=== PATIENT | male | born 1995 | race Caucasian/White ===

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

== ENCOUNTER 2017-05-17 16:56 | Emergency (ER) | payer OTHER ==
[2017-05-17 17:44] VITALS: RESP 16
[2017-05-17] MEDS ORDERED: NS 1,000 ML IV ONE (17:58)
--- NOTE | 2017-05-17 17:59 | EDPHY ---
H & P Stated Complaint: abd pain x 6d, N/V/D Time Seen by Provider: 05/17/17 17:58 HPI/ROS: CHIEF COMPLAINT: Abdominal pain, vomiting, diarrhea HISTORY OF PRESENT ILLNESS: The patient presents to the ED with several day history of worsening abdominal pain, vomiting and diarrhea. The patient denies prior history of abdominal disease. The patient has no prior surgical history. The patient denies recent travel outside the [place] or antibiotic use. The patient reports his pain is generalized in nature. The patient denies dysuria. He denies flank pain. He denies additional acute complaints. REVIEW OF SYSTEMS: A comprehensive 10 point review of systems is otherwise negative aside from elements mentioned in the history of present illness. Source: Patient Exam Limitations: No limitations - Personal History Current Tetanus/Diphtheria Vaccine: Yes Current Tetanus Diphtheria and Acellular Pertussis (TDAP): Yes Tetanus Vaccine Date: < 10 YEARS - Medical/Surgical History Hx Asthma: No Hx Chronic Respiratory Disease: No Hx Diabetes: No Hx Cardiac Disease: No Hx Renal Disease: No Hx Cirrhosis: No Hx Alcoholism: No Hx HIV/AIDS: No Hx Splenectomy or Spleen Trauma: No Other PMH: DENIES - Social History Smoking Status: Never smoked - Physical Exam Exam: General Appearance: Alert, no distress Eyes: Pupils equal and round no pallor or injection ENT, Mouth: Mucous membranes moist Respiratory: There are no retractions, lungs are clear to auscultation Cardiovascular: Regular rate and rhythm Gastrointestinal: Mild generalized tenderness to palpation Neurological: A&O, normal motor function, normal sensory exam, normal cranial nerves Skin: Warm and dry, no rashes Musculoskeletal: Neck is supple nontender Extremities: symmetrical, full range of motion Constitutional: Initial Vital Signs Temperature (C) 36.8 C 05/17/17 17:42 Heart Rate 54 L 05/17/17 17:42 Respiratory Rate 16 05/17/17 17:42 Blood Pressure 134/75 H 05/17/17 17:42 O2 Sat (%) 98 05/17/17 17:42 O2 Delivery Mode Room Air Allergies/Adverse Reactions: No Known Allergies Allergy (Unverified 05/17/17 17:42) Home Medications: Medication Instructions Recorded Lamictal 11/23/16 Medical Decision Making ED Course/Re-evaluation: The patient presents the emergency department with complaints of abdominal pain , vomiting and diarrhea for the past several days. The patient was noted to have mild generalized tenderness on exam without sosa peritoneal signs or right lower quadrant tenderness. The patient had an IV established. He received 2 L of normal saline, IV Toradol, IV morphine and 4 mg of Zofran. The patient's laboratory studies are within normal limits. I re-evaluated the patient several times in the ED. I re-evaluated him at 7:50 p.m. And he is in no acute distress and his symptoms have improved. His abdominal examination has improved as well. At this point time I favor gastroenteritis as a likely presentation of his symptoms today. The patient will be advised to return to the ED for any worsening abdominal pain or other concerns. Patient will be given a prescription for Zofran. He is given customary aftercare instructions and return precautions. Differential Diagnosis: Differential diagnosis considered includes appendicitis, cholecystitis, gastroenteritis, perforation, obstruction, pancreatitis - Data Points Laboratory Results: Laboratory Results 05/17/17 18:13 05/17/17 18:13 05/17/17 05/17/17 18:13 18:13 WBC 7.99 10^3/uL 10^3/uL (3.80-9.50) RBC 4.91 10^6/uL 10^6/uL (4.40-6.38) Hgb 16.1 g/dL g/dL (13.7-17.5) Hct 45.6 % % (40.0-51.0) MCV 92.9 fL fL (81.5-99.8) MCH 32.8 pg pg (27.9-34.1) MCHC 35.3 g/dL g/dL (32.4-36.7) RDW 12.1 % % (11.5-15.2) Plt Count 264 10^3/uL 10^3/uL (150-400) MPV 10.2 fL fL (8.7-11.7) Neut % (Auto) 79.8 % H % (39.3-74.2) Lymph % (Auto) 10.6 % L % (15.0-45.0) Wilson % (Auto) 8.3 % % (4.5-13.0) Eos % (Auto) 0.9 % % (0.6-7.6) Baso % (Auto) 0.1 % L % (0.3-1.7) Nucleat RBC Rel Count 0.0 % % (0.0-0.2) Absolute Neuts (auto) 6.38 10^3/uL 10^3/uL (1.70-6.50) Absolute Lymphs (auto) 0.85 10^3/uL L 10^3/uL (1.00-3.00) Absolute Monos (auto) 0.66 10^3/uL 10^3/uL (0.30-0.80) Absolute Eos (auto) 0.07 10^3/uL 10^3/uL (0.03-0.40) Absolute Basos (auto) 0.01 10^3/uL L 10^3/uL (0.02-0.10) Absolute Nucleated RBC 0.00 10^3/uL 10^3/uL (0-0.01) Immature Gran % 0.3 % % (0.0-1.1) Immature Gran # 0.02 10^3/uL 10^3/uL (0.00-0.10) Sodium 144 mEq/L mEq/L (135-145) Potassium 3.7 mEq/L mEq/L (3.5-5.2) Chloride 108 mEq/L mEq/L (97-110) Carbon Dioxide 25 mEq/l mEq/l (22-31) Anion Gap 11 mEq/L mEq/L (8-16) BUN 6 mg/dL L mg/dL (7-23) Creatinine 1.0 mg/dL mg/dL (0.7-1.3) Estimated GFR > 60 Glucose 107 mg/dL H mg/dL (70-100) Calcium 9.3 mg/dL mg/dL (8.5-10.4) Lipase 46 IU/L IU/L (23-300) Medications Given: Discontinued Medications Sodium Chloride (Ns) 1,000 mls @ 0 mls/hr IV EDNOW ONE; Wide Open PRN Reason: Protocol Stop: 05/17/17 17:59 Last Admin: 05/17/17 18:19 Dose: 1,000 mls Ketorolac Tromethamine (Toradol) 30 mg IVP EDNOW ONE Stop: 05/17/17 19:05 Last Admin: 05/17/17 19:26 Dose: 30 mg Morphine Sulfate (Morphine) 6 mg IVP EDNOW ONE Stop: 05/17/17 18:13 Last Admin: 05/17/17 18:22 Dose: 6 mg Ondansetron HCl (Zofran) 4 mg IVP EDNOW ONE Stop: 05/17/17 18:13 Last Admin: 05/17/17 18:20 Dose: 4 mg Departure - Departure Disposition: Home, Routine, Self-Care Clinical Impression: Gastroenteritis Abdominal pain Qualifiers: Abdominal location: generalized Qualified Code(s): R10.84 - Generalized abdominal pain Condition: Good Instructions: Abdominal Pain (ED) Additional Instructions: Sometimes we are unable to diagnose an obvious cause of abdominal pain in the Emergency Department. Based upon our evaluation today, I believe your symptoms are most likely secondary to a viral intestinal infection. Because more serious conditions can be difficult to diagnose early in the course of their presentation, we ask that you return to the Emergency Department in 8-12 hours for a recheck if you are still having pain. This is necessary to exclude the development of a more serious condition such as appendicitis or other intra- abdominal emergency. In the event your pain markedly increases before that time or you develop intractable vomiting or fever return to the Emergency Department immediately. Take Ibuprofen or Motrin 600 mg by mouth three times a day. Zofran as needed for nausea
[2017-05-17] MEDS ORDERED: ONDANSETRON 4 MG/2 ML VIAL IVP ONE (18:12)
[2017-05-17 18:24] LABS: PLATELET COUNT 264 10^3/uL (150-400)
[2017-05-17] MEDS ORDERED: KETOROLAC 30 MG/1 ML SDV IVP ONE (19:04)
[2017-05-17] MEDS ORDERED: ONDANSETRON 4MG PREPACK#2 BTL TAKEHOME ONE (19:52)
[2017-05-17 20:07] VITALS: BP 103/55; PULSE 59; TEMP 96.8; O2SAT 97
== END 2017-05-17 20:06 | disposition home or self-care (01) ==
DX: K52.9 Noninfective gastroenteritis and colitis, unspecified (principal); E86.9 Volume depletion, unspecified
CPT/HCPCS: 96374; J1885; J2270; J2405

== ENCOUNTER 2018-06-01 03:41 | Emergency (ER) | payer OTHER ==
--- NOTE | 2018-06-01 03:45 | EDPHY ---
H & P Time Seen by Provider: 06/01/18 03:45 HPI/ROS: HPI CHIEF COMPLAINT: Cocaine abuse, alcohol use this evening, anxiety attack HISTORY OF PRESENT ILLNESS: This patient is a 23-year-old male, he has a history of bipolar disorder and takes Lamictal, states he was doing cocaine tonight as well as drinking shots of alcohol, he began to feel very anxious and having anxiety attack. Numbness and tingling throughout his body. Hyperventilating. He has his friends to drive him to the hospital for this. However started hyperventilating worse during the drive pulled over and 911 was called. He arrives to the emergency room rather Calm. But is noted to be tachycardic in the 120s. He denies any chest pain or shortness of breath. He states his anxiety has improved since arriving to the emergency room. Past Medical History: History of anxiety Past Surgical History: Denies significant surgical history Social History: Cocaine use, alcohol use. Family History: Noncontributory ROS REVIEW OF SYSTEMS: 10 Systems were reviewed and negative with the exception of the elements mentioned in the history of present illness. Exam Constitutional anxious, nontoxic triage nursing summary reviewed, vital signs reviewed, awake/alert. Vital signs 120s. Eyes normal conjunctivae and sclera, EOMI, PERRLA. HENT normal inspection, atraumatic, moist mucus membranes, no epistaxis, neck supple/ no meningismus, no raccoon eyes. Respiratory clear to auscultation bilaterally, normal breath sounds, no respiratory distress, no wheezing. Cardiovascular tachycardia, regular rhythm, no murmur, no edema, distal pulses normal. Gastrointestinal soft, non-tender, no rebound, no guarding, normal bowel sounds, no distension, no pulsatile mass. Genitourinary no CVA tenderness. Musculoskeletal no midline vertebral tenderness, full range of motion, no calf swelling, no tenderness of extremities, no meningismus, good pulses, neurovascularly intact. Skin pink, warm, & dry, no rash, skin atraumatic. Neurologic awake, alert and oriented x 3, AAOx3, moves all 4 extremities equally, motor intact, sensory intact, CN II-XII intact, normal cerebellar, normal vision, normal speech. Psychiatric normal mood/affect. Heme/Lymph/Immune no lymphadenopathy. Differential Diagnosis: Includes but is not limited to and in no particular order: Anxiety attack, panic attack, cocaine abuse, drug intoxication alcohol intoxication Medical Decision Making: Plan for this patient IV establishment IV fluid bolus , he has declined any anxiety medicine, will keep on monitoring coordinator due to his tachycardia, check basic blood work. Drug screen alcohol. And continue observed. Re-evaluation: 0604: Drug screen positive cocaine and marijuana. Patient re-evaluated at 6:04 a.m. Heart rate 98. Pulse ox 97% on room air. Blood pressure 140/95. Patient re-evaluate: Resting comfortably no acute distress. Is eager for discharge requesting discharge home. Denies any chest pain or shortness of breath. Source: Patient - Personal History Tetanus Vaccine Date: < 10 YEARS - Medical/Surgical History Hx Asthma: No Hx Chronic Respiratory Disease: No Hx Diabetes: No Hx Cardiac Disease: No Hx Renal Disease: No Hx Cirrhosis: No Hx Alcoholism: No Hx HIV/AIDS: No Hx Splenectomy or Spleen Trauma: No Other PMH: DENIES - Social History Smoking Status: Never smoked Constitutional: Initial Vital Signs Temperature (C) 36.7 C 06/01/18 03:45 Heart Rate 122 H 06/01/18 03:45 Respiratory Rate 18 06/01/18 03:45 Blood Pressure 107/88 H 06/01/18 03:45 O2 Sat (%) 100 06/01/18 03:45 O2 Delivery Mode Room Air Allergies/Adverse Reactions: No Known Allergies Allergy (Verified 06/01/18 03:44) Home Medications: Medication Instructions Recorded Lamictal 11/23/16 Medical Decision Making - Data Points Laboratory Results: Laboratory Results 06/01/18 04:00 06/01/18 04:00 06/01/18 06/01/18 06/01/18 05:45 04:00 04:00 WBC 10.24 10^3/uL H 10^3/uL (3.80-9.50) RBC 4.96 10^6/uL 10^6/uL (4.40-6.38) Hgb 16.2 g/dL g/dL (13.7-17.5) Hct 43.9 % % (40.0-51.0) MCV 88.5 fL fL (81.5-99.8) MCH 32.7 pg pg (27.9-34.1) MCHC 36.9 g/dL H g/dL (32.4-36.7) RDW 11.7 % % (11.5-15.2) Plt Count 307 10^3/uL 10^3/uL (150-400) MPV 10.2 fL fL (8.7-11.7) Neut % (Auto) 74.6 % H % (39.3-74.2) Lymph % (Auto) 13.8 % L % (15.0-45.0) Lane % (Auto) 10.6 % % (4.5-13.0) Eos % (Auto) 0.3 % L % (0.6-7.6) Baso % (Auto) 0.5 % % (0.3-1.7) Nucleat RBC Rel Count 0.0 % % (0.0-0.2) Absolute Neuts (auto) 7.64 10^3/uL H 10^3/uL (1.70-6.50) Absolute Lymphs (auto) 1.41 10^3/uL 10^3/uL (1.00-3.00) Absolute Monos (auto) 1.09 10^3/uL H 10^3/uL (0.30-0.80) Absolute Eos (auto) 0.03 10^3/uL 10^3/uL (0.03-0.40) Absolute Basos (auto) 0.05 10^3/uL 10^3/uL (0.02-0.10) Absolute Nucleated RBC 0.00 10^3/uL 10^3/uL (0-0.01) Immature Gran % 0.2 % % (0.0-1.1) Immature Gran # 0.02 10^3/uL 10^3/uL (0.00-0.10) Sodium 138 mEq/L mEq/L (135-145) Potassium 3.2 mEq/L L mEq/L (3.5-5.2) Chloride 108 mEq/L mEq/L (97-110) Carbon Dioxide 18 mEq/l L mEq/l (22-31) Anion Gap 12 mEq/L mEq/L (6-14) BUN 14 mg/dL mg/dL (7-23) Creatinine 1.1 mg/dL mg/dL (0.7-1.3) Estimated GFR > 60 Glucose 102 mg/dL H mg/dL (70-100) Calcium 9.2 mg/dL mg/dL (8.5-10.4) Urine Opiates Screen NEGATIVE (NEGATIVE) Urine Barbiturates NEGATIVE (NEGATIVE) Ur Phencyclidine Scrn NEGATIVE (NEGATIVE) Ur Amphetamine Screen NEGATIVE (NEGATIVE) U Benzodiazepines Scrn NEGATIVE (NEGATIVE) Urine Cocaine Screen NON-NEGATIVE H (NEGATIVE) U Marijuana (THC) Screen NON-NEGATIVE H (NEGATIVE) Ethyl Alcohol < 10 mg/dL mg/dL (0-10) Medications Given: Discontinued Medications Sodium Chloride (Ns) 1,000 mls @ 0 mls/hr IV EDNOW ONE; Wide Open PRN Reason: Protocol Stop: 06/01/18 03:57 Last Admin: 06/01/18 04:10 Dose: 1,000 mls Sodium Chloride (Ns) 1,000 mls @ 0 mls/hr IV EDNOW ONE; Wide Open PRN Reason: Protocol Stop: 06/01/18 03:57 Last Admin: 06/01/18 04:10 Dose: 1,000 mls Departure - Departure Disposition: Home, Routine, Self-Care Clinical Impression: Cocaine abuse, Anxiety attack Condition: Good Instructions: Cocaine Abuse (ED), Anxiety (ED) Referrals: Patient,NotPresent [Unknown] - As per Instructions
[2018-06-01] MEDS ORDERED: NS 1,000 ML IV ONE ×2 (03:56)
[2018-06-01 04:23] LABS: PLATELET COUNT 307 10^3/uL (150-400)
[2018-06-01 06:18] VITALS: BP 143/85
== END 2018-06-01 06:18 | disposition home or self-care (01) ==
LOC: EDUNIT#
DX: F14.10 Cocaine abuse, uncomplicated (principal); F41.9 Anxiety disorder, unspecified; E86.9 Volume depletion, unspecified
CPT/HCPCS: 80305; G0480